=== PATIENT | male | born 1960 | race Hispanic/Latino ===

== ENCOUNTER 2018-05-21 02:44 | Emergency (ER) | payer OTHER ==
[~2018-05-21] VITALS: Ht 154.9 cm; Wt 69.1 kg
[2018-05-21 04:19] LABS: HEMATOCRIT 39.6 % (38.0-50.0); MCH 30.6 PG (29.0-34.0); MCHC 32.8 G/DL (30.0-36.0); MCV 93.2 FL (86-99); PLATELET COUNT 241 K/uL (156-360); RBC DIS.WIDTH-CV 13.2 % (11.8-14.6); RBC DIS.WIDTH-SD 45.3 % (39-53); RED BLOOD COUNT 4.25 M/uL (4.00-5.50); WHITE BLOOD COUNT 8.7 K/uL (4.1-10.2)
[2018-05-21 04:27] LABS: ALBUMIN 4.1 g/dL (3.2-4.8); CHLORIDE 107 mEq/L (99-109); POTASSIUM 4.2 mEq/L (3.7-5.4); SODIUM 142 mEq/L (136-147)
[2018-05-21 04:29] LABS: GLUCOSE 91 mg/dL (70-99)
[2018-05-21 04:30] LABS: TOTAL PROTEIN 6.7 g/dL (6.4-8.3)
[2018-05-21 04:31] LABS: TOTAL BILIRUBIN 0.3 mg/dL (0.0-1.0)
[2018-05-21 04:33] LABS: ALKALINE PHOSPHATASE 68 IU/L (3-129); CREATININE 0.8 mg/dL (0.6-1.3); GFR ESTIMATE (CALCULATED) > 59 mL/min/ (58.99-99999)
[2018-05-21 04:34] LABS: UREA NITROGEN (BUN) 19 mg/dL (9-23)
[2018-05-21 04:35] LABS: AST (GOT) 16 IU/L (2-34); DIRECT BILIRUBIN 0.2 mg/dL (0.0-0.3)
[2018-05-21 04:36] LABS: ALT (GPT) 16 IU/L (3-49)
[2018-05-21 04:37] LABS: LIPASE 34 U/L (1.0-51.0)
[2018-05-21 04:52] LABS: APPEARANCE CLEAR ((CLEAR)); BILIRUBIN NEGATIVE; BLOOD MODERATE; COLOR YELLOW ((YELLOW)); GLUCOSE (STRIP) NEGATIVE; KETONES NEGATIVE; LEUKOCYTES NEGATIVE; NITRITE NEGATIVE; PROTEIN (STRIP) NEGATIVE; UROBILINOGEN 0.2 MG/DL (0.2-1.0)
[2018-05-21 04:59] LABS: BACTERIA NONE SEEN /HPF; EPITHELIAL CELLS NONE SEEN /HPF; HYALINE CASTS 0-5 /LPF; MUCUS TRACE /LPF; WHITE BLOOD CELLS 0-5 /HPF (0-5)
[2018-05-21] MEDS ORDERED: KEFLEX500 MG PO (05:55)
[2018-05-21 06:12] VITALS: BP 125/72
== END 2018-05-21 06:12 | disposition home or self-care (01) ==
LOC: EME 02:44
PROVIDERS: Physician Assistant
DX: K61.0 Anal abscess (principal); Z87.891 Personal history of nicotine dependence; Z80.9 Family history of malignant neoplasm, unspecified
CPT/HCPCS: 74177; 80048; 80076; 81003; 83690; 85027; 99281; 99284; J7030